=== PATIENT | female | born 1980 | race Caucasian/White ===

== ENCOUNTER 2018-03-07 08:33 | Day surgery (SDC) | payer BC ==
[2018-03-07] MEDS ORDERED: FENTANYL PF 100MCG/2ML VIAL IV ONE (08:34)
[2018-03-07] MEDS ORDERED: PROPOFOL 10 MG/ML VIAL IV ONE (08:34)
[2018-03-07] MEDS ORDERED: LIDOCAINE 1% MDV (10MG/ML) 20ML VIAL SQ ONE (08:34)
--- NOTE | 2018-03-08 08:30 | Operative Note ---
DATE OF SURGERY: 03/07/2018 OPERATION: ESOPHAGOGASTRODUODENOSCOPY with multiple biopsies. INDICATION: Previously diagnosed eosinophilic esophagitis. HISTORY: The patient is a pleasant 38-year-old female who was diagnosed 2 years ago with eosinophilic esophagitis and was suffering with dysphagia and pyrosis at the time. She was treated initially with proton pump inhibitor therapy twice daily and seemed to respond clinically. She now dropped to one PPI daily and continues to do fairly well. She did have allergy testing demonstrating allergic sensitivity to soy, wheat, milk, and eggs. She continues to do well despite not changing her diet or restricting any of these foods. Upper endoscopy is repeated at this time to see if, in fact, eosinophilic esophagitis persists. ANESTHESIA: Intravenous sedation was administered by the department of anesthesiology and included Diprivan titrated to effect. PROCEDURE: Following informed consent from this alert individual, including a discussion of the risks and benefits of the procedure and an opportunity for the patient to ask questions, the patient was in the left lateral decubitus position. The Olympus [id number] video endoscope was inserted into the esophagus without resistance after being well lubricated. The esophagus itself appeared unremarkable throughout its entirety. The squamocolumnar junction was well defined and approximated the diaphragmatic hiatus. The stomach was entered and found to be normal with normal distensibility, folds, and mucosa. The pylorus was patent. The duodenal bulb, sweep and descending duodenum were then examined in a serial fashion and found to be normal. The instrument was then drawn back in the body of the stomach. Retroflexion accomplished following air insufflation failed to demonstrate any changes. The endoscope was then straightened and withdrawn back to the distal esophagus where multiple biopsies were taken from the distal esophageal segment and a second set of biopsies taken from the proximal esophagus upon withdrawal. The instrument was removed. The patient tolerated the procedure well and was returned to the recovery area in stable condition. IMPRESSION: Unremarkable esophagogastroduodenoscopy with normal-appearing esophagus, stomach, and duodenum. Biopsies taken from the distal esophageal segment and proximal esophagus to evaluate for possible persistent eosinophilic esophagitis. RECOMMENDATION: Further recommendations will be forthcoming pending results of biopsy. At this time, patient will continue with one dose of omeprazole 20 mg daily. Followup will be in the clinic. As always, thank you for allowing me to participate in the care of your patient. CC: Dr. Hira OAKLEY
== END 2018-03-07 10:10 | disposition home or self-care (01) ==
LOC: HOP 08:33
PROVIDERS: ATTEND Internal Medicine Gastroenterology
DX: K20.0 Eosinophilic esophagitis (principal); K21.9 Gastro-esophageal reflux disease without esophagitis
CPT/HCPCS: 43235; 00731; 81025; J3010

== ENCOUNTER 2018-10-18 21:06 | Emergency (ER) | payer SELFPAY ==
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
== END 2018-10-19 00:09 | disposition home or self-care (01) ==
LOC: ER 21:06
DX: S09.90XA Unspecified injury of head, initial encounter (principal); S40.012A Contusion of left shoulder, initial encounter; R51 Headache; V43.53XA Car driver injured in collision with pick-up truck in traffic accident, initial encounter
CPT/HCPCS: 70450; 99283